=== PATIENT | female | born 1940 | race Caucasian/White ===

== ENCOUNTER → 2024-01-10 14:41 | Outpatient (REF) | payer MEDICARE, SELFPAY | LOC: HWRCS 14:41 | PROVIDERS: ATTENDING PHYSICIAN Internal Medicine Cardiovascular Disease; FAMILY PHYSICIAN Internal Medicine | DX: I34.0 Nonrheumatic mitral (valve) insufficiency (principal) | CPT/HCPCS: 93306 ==

== ENCOUNTER 2024-06-25 00:43 | Inpatient (IN) | payer MEDICARE, SELFPAY ==
[2024-06-24] VITALS (10 sets, daily range): BP systolic 94–136; BP diastolic 51–106; BMI 28.6
--- NOTE | 2024-06-24 21:58 | ED.GENMED ---
History of Present Illness
<Josh Stephen DO, Resident - Last Filed: 06/24/24 22:35>
General
Chief Complaint: Heart Rate Problem
Source: patient
Time Seen by Provider: 06/24/24 21:38
History of Present Illness
History of Present Illness:
84-year-old female with past medical history significant for paroxysmal atrial fibrillation on anticoagulation, heart failure, hyperlipidemia and lung cancer status post right upper lobe lobectomy in 2015 presents for severe cough, shortness of
breath and palpitations. She describes the cough as severe but nonproductive. Recent urgent care visit diagnosed her with a UTI, for which she is currently on antibiotics. She also endorses a singular episode of diarrhea on Monday which as well as
1 episode of vomiting with slight nausea. On presentation to the ED she is noted to be in A-fib with RVR, and diffuse wheezing is present on exam.
Past History
<Josh Stephen DO, Resident - Last Filed: 06/24/24 22:35>
Past History
ED Past Medical History: Arrthythmia, Cancer, CHF and Other (lung ca)
ED Past Surgical History: Orthopedic and Other (lung resection)
Social History
Tobacco: Non-smoker
Alcohol: Occasional
Drug: None
Personal:
Living: with family
Review of Systems
<Josh Stephen DO, Resident - Last Filed: 06/24/24 22:35>
Review of Systems
Constitutional: Reports no symptoms
Respiratory: Reports cough, trouble breathing and other (Wheezing)
Cardiac: Reports palpitations
ABD/GI: Reports nausea and vomiting
: Reports frequency
Phy Exam
<Josh Stephen DO, Resident - Last Filed: 06/24/24 22:35>
General Physical Exam
General Presentation: well appearing
General Skin: warm and dry
Cardiovascular Exam
Cardiovascular Exam: no edema and irregularly irregular
Pulmonary Exam
Pulmonary Exam: generalized wheezing
Oxygen Status: room air
Cough: coarse cough and non productive cough
Gastrointestinal Exam
Gastrointestinal Exam: non tender, soft and non distended
Musculoskeletal Exam
Musculoskeletal Exam: no edema
Sepsis
<William Poe DO - Last Filed: 06/25/24 00:45>
Sepsis Screening
Sepsis Assessment: Sepsis Ruled Out
Sepsis Screen
Sepsis Screen: Sepsis Ruled Out
Date: 06/25/24
Time: 00:45
Course
<Josh Stephen DO, Resident - Last Filed: 06/24/24 22:35>
Orders/Labs/Results
Orders:
Orders
06/24/24 21:42
Electrocardiogram (*1) Urgent
Reason for Study: Tachycardia
06/24/24 21:43
EKG- Treatment ONCE
06/24/24 22:06
Complete Blood Count/With Diff Urgent
Comprehensive Metabolic Panel Urgent
06/24/24 22:14
CR Chest - 2 Views Urgent
Comment:
Reason For Exam: cough
06/24/24 22:19
Add On- LAB Urgent
Tests Added?: NT pro-BNP
06/24/24 22:26
Diltiazem HCl [Cardizem] 10 mg IV NOW STA
Ipratropium/Albuterol Sulfate [Duoneb] 3 ml INH R NOW STA
06/24/24 22:30
Diltiazem 125 mg/125 ml Nss [Cardizem] 125 mg in 125 ml IV PER PROTOCOL
Initial dose in mg/hr, then titrate:: 5
Titrate to keep:: Heart rate 80-100 bpm
Titrate by mg/hr:: 5 mg/hr
Frequency of titrations (minutes):: 15
Maximum dose in mg/hr:: 15
06/24/24 22:44
NT-proBNP Urgent
Comment: ADD ON
Troponin I Urgent
06/24/24 23:20
Furosemide [Lasix] 60 mg IV NOW STA
06/25/24 00:26
Admit/Transfer Patient As Directed
Co-Sign Provider:
Level of Care: Inpatient admission
Assign to:: IMU- Intermediate Care
Physician / Group: [facility]
Diagnosis: A-Fib with RVR, Tracheobronchitis
Reason for Hospitalization: A-Fib with RVR, Tracheobronchitis
Expected length of stay greater than two midnights?: Yes
ELOS- Estimated Length of Stay in days: 3
I certify the patient meets the requirements for IP care: Yes
PRN Pain Medication Management As Directed
May give lesser potent ordered pain med per pt: Yes
preference::
Protocol:: Medication orders for pain may be administered in a
manner that supports deferring to patient preference
when the pt is:
- Requesting an ordered lesser potent pain medication.
Least to most potent pain medications are defined
as: acetaminophen < NSAID < tramadol < opioids
(morphine, oxycodone, hydromorphone).
- Requesting a lesser dose of the same medication IF
ORDERED.
- Requesting a less intrusive route of administration
if both routes are prescribed by the provider (PO <
IV).
06/25/24 00:28
Code Status As Directed
Resuscitation Status: Full Code
06/25/24 00:38
COVID-19 Antigen Urgent
Source: Nasal Swab
Influenza A+B Rapid Molecular Urgent
ELINOR Source: Nasal Swab
Specimen Description:
Abnormal Lab Results
06/24/24
22:06
MPV 11.5 H fL
(7.4-10.4)
Absolute Lymphs (auto) 0.8 L 10^3/uL
(1.2-3.4)
Absolute Monos (auto) 1.1 H 10^3/uL
(0.1-0.6)
Lymphocytes % 10.8 L %
(20.5-51.1)
Monocytes % 16.0 H %
(1.7-9.3)
BUN 18 H mg/dl
(7-17)
Glucose 109 H mg/dl
(70-99)
AST 66 H U/L
(14-36)
ALT 40 H U/L
(0-35)
06/24/24 22:06
06/24/24 22:06
Vital Signs
Initial and Last Documented VS:
Initial Vital Signs
Pulse Resp
144 25
06/24/24 21:41 06/24/24 21:41
Last Documented Vital Signs
Temp Pulse Resp BP Pulse Ox
98.3 F 98 15 103/55 96
06/24/24 21:43 06/25/24 00:15 06/25/24 00:15 06/25/24 00:15 06/25/24 00:15
<William Poe, DO - Last Filed: 06/25/24 00:45>
Orders/Labs/Results
Orders:
Orders
06/24/24 21:42
Electrocardiogram (*1) Urgent
Reason for Study: Tachycardia
06/24/24 21:43
EKG- Treatment ONCE
06/24/24 22:06
Complete Blood Count/With Diff Urgent
Comprehensive Metabolic Panel Urgent
06/24/24 22:14
CR Chest - 2 Views Urgent
Comment:
Reason For Exam: cough
06/24/24 22:19
Add On- LAB Urgent
Tests Added?: NT pro-BNP
06/24/24 22:26
Diltiazem HCl [Cardizem] 10 mg IV NOW STA
Ipratropium/Albuterol Sulfate [Duoneb] 3 ml INH R NOW STA
06/24/24 22:30
Diltiazem 125 mg/125 ml Nss [Cardizem] 125 mg in 125 ml IV PER PROTOCOL
Initial dose in mg/hr, then titrate:: 5
Titrate to keep:: Heart rate 80-100 bpm
Titrate by mg/hr:: 5 mg/hr
Frequency of titrations (minutes):: 15
Maximum dose in mg/hr:: 15
06/24/24 22:44
NT-proBNP Urgent
Comment: ADD ON
Troponin I Urgent
06/24/24 23:20
Furosemide [Lasix] 60 mg IV NOW STA
06/25/24 00:26
Admit/Transfer Patient As Directed
Co-Sign Provider:
Level of Care: Inpatient admission
Assign to:: IMU- Intermediate Care
Physician / Group: [facility]
Diagnosis: A-Fib with RVR, Tracheobronchitis
Reason for Hospitalization: A-Fib with RVR, Tracheobronchitis
Expected length of stay greater than two midnights?: Yes
ELOS- Estimated Length of Stay in days: 3
I certify the patient meets the requirements for IP care: Yes
PRN Pain Medication Management As Directed
May give lesser potent ordered pain med per pt: Yes
preference::
Protocol:: Medication orders for pain may be administered in a
manner that supports deferring to patient preference
when the pt is:
- Requesting an ordered lesser potent pain medication.
Least to most potent pain medications are defined
as: acetaminophen < NSAID < tramadol < opioids
(morphine, oxycodone, hydromorphone).
- Requesting a lesser dose of the same medication IF
ORDERED.
- Requesting a less intrusive route of administration
if both routes are prescribed by the provider (PO <
IV).
06/25/24 00:28
Code Status As Directed
Resuscitation Status: Full Code
06/25/24 00:38
COVID-19 Antigen Urgent
Source: Nasal Swab
Influenza A+B Rapid Molecular Urgent
ELINOR Source: Nasal Swab
Specimen Description:
Abnormal Lab Results
06/24/24
22:06
MPV 11.5 H fL
(7.4-10.4)
Absolute Lymphs (auto) 0.8 L 10^3/uL
(1.2-3.4)
Absolute Monos (auto) 1.1 H 10^3/uL
(0.1-0.6)
Lymphocytes % 10.8 L %
(20.5-51.1)
Monocytes % 16.0 H %
(1.7-9.3)
BUN 18 H mg/dl
(7-17)
Glucose 109 H mg/dl
(70-99)
AST 66 H U/L
(14-36)
ALT 40 H U/L
(0-35)
06/24/24 22:06
06/24/24 22:06
Vital Signs
Initial and Last Documented VS:
Initial Vital Signs
Pulse Resp
144 25
06/24/24 21:41 06/24/24 21:41
Last Documented Vital Signs
Temp Pulse Resp BP Pulse Ox
98.3 F 98 15 103/55 96
06/24/24 21:43 06/25/24 00:15 06/25/24 00:15 06/25/24 00:15 06/25/24 00:15
<Josh Stephen DO, Resident - Last Filed: 06/24/24 22:35>
MDM/Problems Addressed
Differential Diagnosis Includes:
Acute hypoxemic respiratory insufficiency versus heart failure exacerbation versus atrial fibrillation with RVR versus bronchitis
MDM/Problems Addressed:
#Acute hypoxemic respiratory insufficiency versus heart failure exacerbation versus atrial fibrillation with RVR
Patient has a past medical history of heart failure and atrial fibrillation, currently on anticoagulation
Reports cough, palpitations and severe shortness of breath
Diffuse wheezing present bilaterally
Patient currently in atrial fibrillation with RVR, on anticoagulation
Currently satting in the 90s on room air
Will initiate supplemental oxygen as needed, titrate as tolerated
DuoNeb nebulizer treatments for wheezing
Rate control with IV calcium channel blockers
Supplemental oxygen as needed
Will check COVID, flu, RSV to rule out bronchitis
Symptoms could be explained by heart failure, will consider IV diuresis
<William Poe DO - Last Filed: 06/25/24 00:45>
*Radiology
Radiology exam reviewed: preliminary read by ED provider
*Pulse Oximetry
Patient hypoxic: yes
*EKG
Interpreted by ED Provider?: Yes
Interpretation: abnormal
Comparison EKG: changes noted
Heart Rate: 142
Rate: tachycardiac
Rhythm: a-fib
Ischemia: non-specific ST changes
*Relief Operator Interpretation
Rate: tachycardiac
Interpretation: abnormal
Heart Rate: 140
Rhythm: a-fib
*Critical Care Note
Total Time (30-74mins, 75-104mins- exclusive of procedures): 32
<William Peo DO - Last Filed: 06/25/24 00:45>
Update Note
Update Note:
Update labs are noted chest x-ray noted proBNP noted patient is hypoxic will start supplemental oxygen order diuretic rate control will require admission
ED Attending Note
<Josh Stephen DO, Resident - Last Filed: 06/24/24 22:35>
-
Portions of this chart may have been created with voice recognition software.� Occasional wrong word or��sound alike� substitutions may have occurred due to the inherent limitations of voice recognition software.
<William Poe, DO - Last Filed: 06/25/24 00:45>
ED Attending Note
Patient seen and examined by attending physician: Yes
I performed a history and physical exam of patient and discussed management with resident, I reviewed resident's note and agree with documented findings and plan of care.: Yes
ED Attending Note:
Seen with resident examined independently 84-year-old female PAF, on Eliquis diuretic as well recent URI cough, wheezing, no leg edema, seen at an urgent care had a chest x-ray which was unremarkable started on antibiotic for UTI, here she is
tachypneic tachycardic wheezing, does not examine to be particularly volume overloaded, hypoxic, plan will be supplemental oxygen nebs as tolerated, rate control, viral swabs chest x-ray proBNP
Discharge Plan
Departure
Patient Disposition: Admit
Date of Disposition: 06/24/24
Time of Disposition: 23:22
Presentation/result/management discussed w/ accepting MD/DO: Hospitalist
Patient with high blood pressure during this ER visit?: No
Condition: Fair
Covid-19: Not Applicable
Discharge Problem:
Afib, Hypoxic, CHF (congestive heart failure)
Interventions
Interventions:
*Risk Screen - Suicide Last Done: 06/24/24 21:51
*General Assessment Last Done: 06/24/24 21:51
*Neglect/Abuse Screening Last Done: 06/24/24 21:51
ED- Fall Risk Assessment Last Done: 06/24/24 21:51
*ED COVID-19 Vaccine History Last Done: 06/24/24 21:51
ED- Cardiac Assessment Last Done: 06/24/24 21:51
ED- Pulmonary Assessment Last Done: 06/24/24 21:51
[2024-06-24] MEDS: DUONEB 3 ML INH (22:31)
[2024-06-24 22:33] LABS: % Basophils 0.3 % (0-2); % Eosinophils 0.1 % (0-6); % Immature Granulocytes 0.3 % (0-0.5); % Lymphocytes 10.8 % (20.5-51.1); % Neutrophils 72.5 % (42.2-75.2); ALT (SGPT) 40 U/L (0-35); AST (SGOT) 66 U/L (14-36); Absolute Lymphocytes 0.8 10^3/uL (1.2-3.4); Absolute Monocytes 1.1 10^3/uL (0.1-0.6); Absolute Neutrophils 5.2 10^3/uL (1.4-6.5); Albumin 4.2 g/dl (3.5-5.0); Alkaline Phosphatase 73 U/L (38-126); Blood Urea Nitrogen 18 mg/dl (7-17); Calcium 8.6 mg/dl (8.4-10.2); Carbon Dioxide 26 mmol/L (22-30); Chloride 102 mmol/L (98-107); Glucose 109 mg/dl (70-99); Hematocrit 42.8 % (37.0-47.0); Hemoglobin 14.2 g/dL (12.0-16.0); Mean Corp Hgb Conc. 33.2 g/dL (33.0-37.0); Mean Corpuscular Hgb 30.7 pg (27.0-31.0); Mean Corpuscular Volume 92.6 fL (81.0-99.0); Mean Platelet Volume 11.5 fL (7.4-10.4); Nucleated Red Blood Cells % 0 %; Platelet Count 144 10^3/uL (130-400); Potassium 3.5 mmol/L (3.5-5.1); Red Blood Cell Count 4.62 10^6/uL (4.20-5.40); Red Cell Dist. Width 13.2 % (11.5-14.5); Sodium 138 mmol/L (135-145); Total Bilirubin 0.7 mg/dl (0.2-1.3); Total Protein 6.8 g/dl (6.3-8.2); White Blood Cell Count 7.1 10^3/uL (4.8-10.8); eGFR > 60.00
[2024-06-24] MEDS: CARDIZEM 10 MG IV (22:34)
[2024-06-24] MEDS: CARDIZEM 125 IV (22:35)
[2024-06-24 23:19] LABS: NT-proBNP 5020 pg/ml; Troponin I < 0.012 ng/ml
[2024-06-24] MEDS: LASIX 60 MG IV (23:59)
[2024-06-25] VITALS (17 sets, daily range): BP systolic 94–132; BP diastolic 55–94; BMI 27.1
--- NOTE | 2024-06-25 00:32 | HPS.HSE ---
Family Physician
-
Family Physician: Anthony Palencia
Chief Complaint
-
Cough / SOB
History of Present Illness
Patient is an 84y F with PMH significant for A-Fib, HFpEF and lung cancer s/p excision who presents to ED complaining of cough and SOB. Patient states that she has had a 'deep seated' cough for the past week or two. Patient notes that cough is
not productive. She has sense of palpitations / fluttering in her chest - but only with coughing spells. She has become progressively more SOB. No chest pain. No fevers but she does report chills. No known sick contacts.
Patient notes that she has also had GI symptoms over the past 3-4 days including nausea and few loose stools.
She was seen at Urgent Care on Monday with complaints of urinary frequency and dysuria. She was placed on Macrobid at that time.
She was also started on cough syrup which she states has been modestly effective.
Medical History
Past Medical History
Past Medical History: Reports Other
Additional Past Medical History:
Persistent Atrial Fibrillation
Chronic HFpEF
Lung Cancer s/p Resection. No Adjuvant Therapies
Recurrent UTIs
Past Surgical History: Reports Other
Additional Past Surgical History:
Right Upper Lobectomy
Skin Cancer Excisions
Right SHAW
Social History
Tobacco: Non-smoker
Alcohol: None
Drug: None
Family History
Family History: Not pertinent
Allergies / Home Medications
Allergies reflects when Allergies were last updated in [facility].
Home Medications with original date entered in [facility]
Allergy/Medication List:
Allergies
Allergy/AdvReac Type Severity Reaction Status Date / Time
Sulfa (Sulfonamide Allergy Mild Rash Verified 06/24/24 21:50
Antibiotics)
Home Medications
apixaban 5 mg tablet (Eliquis) 5 mg PO BID #60 tabs 07/13/20
diltiazem HCl 240 mg capsule,extended release 24 hr 240 mg PO DAILY 06/24/24
furosemide 40 mg tablet 40 mg PO Q48H 06/24/24
guaifenesin 600 mg tablet, extended release 12 hr (Mucinex) 600 mg PO [id number] PRN cough 06/24/24
metoprolol succinate 50 mg tablet,extended release 24 hr (Toprol XL) 75 mg PO BID 06/24/24
nitrofurantoin monohydrate/macrocrystals 100 mg capsule (Macrobid) 100 mg PO BID 06/24/24
rosuvastatin 10 mg tablet 10 mg PO Q48H 06/24/24
Review of Systems
-
History Source: Patient
A 12 point ROS was completed and negative except as noted: Yes
Constitutional: Reports Fatigue and Chills; Denies Fever
EENT: Denies Sore Throat
Respiratory: Reports Cough and Trouble Breathing
Cardiac: Reports Palpitations; Denies Chest Pain, Diaphoresis or Syncope
Abdomen/GI: Reports Nausea and Diarrhea; Denies Abdominal Pain, Vomiting or Bloody Stools
: Reports Dysuria and Frequency; Denies Incontinence
Musculoskeletal: Denies Joint Pain or Edema
Neurological: Denies Dizzy or Headache
Psych: Denies Depression or Anxiety
Physical Exam
Vital Signs
Vital Signs
Temp Pulse Resp BP Pulse Ox
98.3 F 98 15 103/55 96
06/24/24 21:43 06/25/24 00:15 06/25/24 00:15 06/25/24 00:15 06/25/24 00:15
Physical Exam
General: Other (84y F in no acute distress.)
HEENT: Moist mucous membranes and PERRLA
Respiratory: Other (Coarse rhonchi throughout all lung pagan. Mild expiratory wheezes. No rales.)
Cardiac: S1/S2, Irregular Rhythm and Murmur (II/ HEENA)
GI: Soft, Non Tender, Non Distended and Normal Bowel Sounds
Musculoskeletal: No Clubbing, No Cyanosis and No Edema
Neuro: AO x 3
Laboratory Results
-
06/24/24 22:06
06/24/24 22:06
Laboratory Results
APTT Cancelled 06/24/24 21:42
Total Bilirubin 0.7 mg/dl (0.2-1.3) 06/24/24 22:06
AST 66 U/L (14-36) H 06/24/24 22:06
ALT 40 U/L (0-35) H 06/24/24 22:06
Alkaline Phosphatase 73 U/L (38-126) 06/24/24 22:06
Troponin I < 0.012 ng/ml 06/24/24 22:44
Impression/Plan
-
A/P: Patient is an 84y F with PMH significant for A-Fib, CHF and lung cancer who presents to ED complaining of cough and SOB.
Tracheobronchitis
- Admit for further evaluation and treatment.
- Patient presents with chills, cough, GI symptoms and worsening dyspnea.
- Rhonchi on exam more consistent with infectious process > pulmonary edema.
- Abx with ceftriaxone / doxycycline for now.
- Supportive care including nebs, cough suppressants, mucolytics, etc.
- Follow for clinical improvement.
- Check COVID and influenza.
Persistent Atrial Fibrillation with Rapid Ventricular response
- Elevated heart rate on admission - improved on IV diltiazem.
- Continue and titrate as needed for rate control.
- Continue metoprolol.
- Continue Eliquis for stroke risk reduction.
- Monitor on tele overnight.
- Cardiology evaluation for additional recommendations.
Chronic HFpEF
- Patient does not appear volume overloaded on exam.
- Continue Lasix - increase to daily dosing instead of q48h.
- Follow I/Os, daily weights, etc.
- Echo done in January with EF = 50-55% and mild - mod MR and TR.
UTI
- Patient recently diagnosed with UTI at Urgent Care.
- Hold Macrobid while on other abx as noted above.
History of Lung Cancer
- s/p resection 11 years ago. No adjuvant therapy.
- Had 'full body scan' last year that showed no evidence of disease.
DVT Prophylaxis: On Eliquis
Code Status: Full
[2024-06-25] MEDS: ROCEPHIN 1000 MG IV (01:45)
[2024-06-25] MEDS: CRESTOR 10 MG PO (01:45)
[2024-06-25] MEDS: STERILE WATER FOR INJECTION 10 ML IV (01:45)
[2024-06-25 02:01] LABS: COVID-19 Antigen Negative (Negative)
[2024-06-25 02:08] LABS: Troponin I < 0.012 ng/ml
[2024-06-25 06:05] LABS: Hematocrit 43.6 % (37.0-47.0); Hemoglobin 14.4 g/dL (12.0-16.0); Mean Corpuscular Hgb 30.5 pg (27.0-31.0); Mean Corpuscular Volume 92.4 fL (81.0-99.0); Platelet Count 143 10^3/uL (130-400); Red Blood Cell Count 4.72 10^6/uL (4.20-5.40); White Blood Cell Count 5.8 10^3/uL (4.8-10.8)
[2024-06-25] MEDS: MUCINEX 600 MG PO ×2 (08:54→20:28)
[2024-06-25] MEDS: ELIQUIS 5 MG PO ×2 (08:54→20:28)
[2024-06-25] MEDS: LASIX 40 MG PO (08:55)
[2024-06-25] MEDS: TESSALON PERLES 100 MG PO (08:57)
[2024-06-25] MEDS: TOPROL XL 75 MG PO ×2 (08:57→20:28)
[2024-06-25] MEDS: ANESTHETIC LOZENGE 1 LOZENGE PO ×2 (08:57→17:51)
[2024-06-25] MEDS: VIBRAMYCIN 100 MG PO (08:57)
[2024-06-25 09:44] LABS: Blood Urea Nitrogen 19 mg/dl (7-17); Calcium 8.6 mg/dl (8.4-10.2); Carbon Dioxide 27 mmol/L (22-30); Chloride 102 mmol/L (98-107); Estimated Creatinine Clearance 55 ml/min; Glucose 96 mg/dl (70-99); HDL Cholesterol 43 mg/dl; LDL Cholesterol, Calculated 81 mg/dl; Sodium 141 mmol/L (135-145); Total Cholesterol 144 mg/dl (50-199); Triglyceride 102 mg/dl (10-149); Very Low Density Lipoprotein 20 mg/dl (0-30); eGFR > 60.00
--- NOTE | 2024-06-25 09:49 | W.PN.HOSP.TC ---
Today's Communication/Plan
-
Tamiflu
Standing nebs (Levalbuterol)
Wean Dilt as able
F/U Procal and DC antibiotics if negative
Assessment / Plan
Assessment / Plan
Ms. Jazmyn Ca is a 84 yo woman with hx afib, HFpEF, lunc CA s/p excision presents to the ER with cough and SOB.
CXR
IMPRESSION:
Cardiomegaly with likely bibasilar atelectasis.
Tracheobronchitis
Influenza A
- Patient presents with chills, cough, GI symptoms and worsening dyspnea.
- Rhonchi on exam more consistent with infectious process > pulmonary edema.
- Influenza A positive, start Tamiflu
- Supportive care including nebs, cough suppressants, mucolytics
- check procalcitonin and if negative can stop antibiotics
Persistent Atrial Fibrillation with Rapid Ventricular response
- Elevated heart rate on admission - improved on IV diltiazem - wean down as able
- Continue and titrate as needed for rate control.
- Continue metoprolol.
- Continue Eliquis for stroke risk reduction.
- Monitor on tele overnight.
Hypokalemia
-replete and check Mag
Chronic HFpEF
- Patient does not appear volume overloaded on exam.
- Continue Lasix - increase to daily dosing instead of q48h.
- Follow I/Os, daily weights, etc.
- Echo done in January with EF = 50-55% and mild - mod MR and TR.
UTI
- Patient recently diagnosed with UTI at Urgent Care.
- Hold Macrobid while on other abx --> resume if stop abx
History of Lung Cancer
- s/p resection 11 years ago. No adjuvant therapy.
- Had 'full body scan' last year that showed no evidence of disease.
DVT Prophylaxis: On Eliquis
Code Status: Full
51 minutes spent on patient care
Anticipated Discharge: 24 - 48 hours
Subjective/Interval History
-
Date of Service: June 25, 2024
feeling slightly better this morning
has some GI upset
Objective Data
-
Labs:
Laboratory Results
06/24/24 06/24/24 06/25/24
21:42 22:06 05:24
WBC 7.1 5.8
Hgb 14.2 14.4
Hct 42.8 43.6
Plt Count 144 143
APTT Cancelled
Sodium 138 Cancelled
Potassium 3.5 Cancelled
Chloride 102 Cancelled
Carbon Dioxide 26 Cancelled
BUN 18 H Cancelled
Creatinine 0.7 Cancelled
Glucose 109 H Cancelled
Calcium 8.6 Cancelled
Total Bilirubin 0.7
AST 66 H
ALT 40 H
Alkaline Phosphatase 73
06/25/24
09:15
WBC
Hgb
Hct
Plt Count
APTT
Sodium 141
Potassium 3.0 L
Chloride 102
Carbon Dioxide 27
BUN 19 H
Creatinine 0.7
Glucose 96
Calcium 8.6
Total Bilirubin
AST
ALT
Alkaline Phosphatase
Vital Signs:
Vital Signs
Temp Pulse Resp BP Pulse Ox
99.0 F 88 18 98/60 95
06/25/24 08:01 06/25/24 08:57 06/25/24 08:01 06/25/24 08:57 06/25/24 08:01
I&O
06/24/24 06/25/24 06/26/24
06:59 06:59 06:59
Intake Total 50 / 50
Output Total 1999 / 1999
Balance -1950 / -1950
Review of Systems
-
History Source: Patient
All other systems: Reviewed and negative
Physical Exam
-
General: No Apparent Distress and Conversant
HEENT: PERRLA
Respiratory: Wheezes and Rhonchi
Cardiac: Irregular Rhythm
GI: Soft and Nontender
Musculoskeletal: No Edema
Skin: Warm and Dry; Negative Rash
Neuro: AO x 3
Psych: Calm
Data Reviewed
-
Diagnostic Radiology: Report Reviewed by me
Labs: Labs Reviewed by me
[2024-06-25 09:56] LABS: Troponin I < 0.012 ng/ml
[2024-06-25 10:29] LABS: Procalcitonin 0.16 ng/ml (0.0-0.25)
[2024-06-25] MEDS: XOPENEX 0.63 MG INHALANT SOLUTION INH ×3 (10:36→19:51)
[2024-06-25] MEDS: KCL 260 MEQ IV (11:00)
[2024-06-25] MEDS: KCL ELIXIR 40 MEQ PO (11:00)
[2024-06-25] MEDS: TAMIFLU 30 MG PO ×2 (11:01→20:28)
[2024-06-25] MEDS: ATROVENT NEBULES 0.5 MG INH ×2 (14:50→19:51)
[2024-06-25 16:04] LABS: Potassium 3.7 mmol/L (3.5-5.1)
[2024-06-25] MEDS: KCL 20 MEQ PO (17:26)
[2024-06-25] MEDS: CARDIZEM CD 240 MG PO (17:26)
[2024-06-25] MEDS: MACROBID 100 MG PO (20:28)
[2024-06-26 03:38] VITALS: BP 102/68
[2024-06-26 06:00] VITALS: BMI 26.9
[2024-06-26 07:10] VITALS: BP 120/71
[2024-06-26] MEDS: ATROVENT NEBULES 0.5 MG INH ×3 (07:32→19:51)
[2024-06-26] MEDS: XOPENEX 0.63 MG INHALANT SOLUTION INH ×3 (07:32→19:51)
[2024-06-26 08:13] LABS: Hematocrit 42.6 % (37.0-47.0); Hemoglobin 14.1 g/dL (12.0-16.0); Mean Corp Hgb Conc. 33.1 g/dL (33.0-37.0); Mean Corpuscular Hgb 30.8 pg (27.0-31.0); Platelet Count 153 10^3/uL (130-400); Red Blood Cell Count 4.58 10^6/uL (4.20-5.40); Red Cell Dist. Width 13.1 % (11.5-14.5); White Blood Cell Count 5.4 10^3/uL (4.8-10.8)
[2024-06-26] MEDS: MACROBID 100 MG PO ×2 (08:17→20:18)
[2024-06-26] MEDS: TAMIFLU 30 MG PO ×2 (08:17→20:17)
[2024-06-26] MEDS: TOPROL XL 75 MG PO ×2 (08:17→20:18)
[2024-06-26] MEDS: MUCINEX 600 MG PO ×2 (08:18→20:18)
[2024-06-26] MEDS: CARDIZEM CD 240 MG PO (08:18)
[2024-06-26] MEDS: LASIX 40 MG PO (08:18)
[2024-06-26] MEDS: ELIQUIS 5 MG PO ×2 (08:19→20:17)
[2024-06-26 08:45] LABS: Blood Urea Nitrogen 18 mg/dl (7-17); Calcium 8.7 mg/dl (8.4-10.2); Carbon Dioxide 31 mmol/L (22-30); Chloride 101 mmol/L (98-107); Estimated Creatinine Clearance 54 ml/min; Glucose 80 mg/dl (70-99); Potassium 3.4 mmol/L (3.5-5.1); Sodium 139 mmol/L (135-145); eGFR > 60.00
[2024-06-26] MEDS: ANESTHETIC LOZENGE 1 LOZENGE PO (09:49)
[2024-06-26 11:05] VITALS: BP 110/62
--- NOTE | 2024-06-26 12:12 | W.PN.HOSP.TC ---
Today's Communication/Plan
-
Assessment / Plan
Assessment / Plan
Acute hypoxic respiratory failure, on 4l, lowest documented spo2 88%
-secondary to flu and ?HF
-increased diuretic to po 40mg
-started on tamiflu
-wean o2 as tolerated
Tracheobronchitis
Influenza A
- Continue 5day course of tamiflu
- Supportive care including nebs, cough suppressants, mucolytics
Persistent Atrial Fibrillation with Rapid Ventricular response
- Controlled fib
- Off dilt drip
- On po home dose dilt and eliquis
HypoK
- repelte prn
Hypokalemia
-replete and check Mag
Acute on Chronic HFpEF
-BNP 5200, cxr with cardiomeg
- Does not appear volume overloaded on exam.
- Continue Lasix - increase to daily dosing instead of q48h.
- Follow I/Os, daily weights, etc.
- Echo done in January with EF = 50-55% and mild - mod MR and TR.
UTI
- Patient recently diagnosed with UTI at Urgent Care.
- Hold Macrobid while on other abx --> resume if stop abx
History of Lung Cancer
- s/p resection 11 years ago. No adjuvant therapy.
- Had 'full body scan' last year that showed no evidence of disease.
DVT Prophylaxis: On Eliquis
Code Status: Full
Anticipated Discharge: > 48 hours
Subjective/Interval History
-
Date of Service: June 26, 2024
seen and examined
no new comaplitns
asking intellectual questions about afib
no aucte overngiht events
remains on o2 at 4l
Objective Data
-
Labs:
Laboratory Results
06/26/24
07:04
WBC 5.4
Hgb 14.1
Hct 42.6
Plt Count 153
Sodium 139
Potassium 3.4 L
Chloride 101
Carbon Dioxide 31 H
BUN 18 H
Creatinine 0.7
Glucose 80
Calcium 8.7
Vital Signs:
Vital Signs
Temp Pulse Resp BP Pulse Ox
97.9 F 79 17 110/62 98
06/26/24 11:05 06/26/24 11:05 06/26/24 11:05 06/26/24 11:05 06/26/24 11:05
I&O
06/25/24 06/26/24 06/27/24
06:59 06:59 06:59
Intake Total 50 / 50 670 / 670
Output Total 1999 / 1999 250 / 250
Balance -1950 / -1950 420 / 420
Physical Exam
-
General: No Apparent Distress and Comfortable
HEENT: Normocephalic and Atraumatic
Respiratory: Rhonchi
Cardiac: S1/S2 and Irregular Rhythm
GI: Soft, Nontender, Nondistended and Normal Bowel Sounds
Musculoskeletal: No Clubbing, No Cyanosis and No Edema
Skin: Warm and Dry
Neuro: Awake, Alert, Oriented and AO x 3
Psych: Calm
[2024-06-26] MEDS: KCL 40 MEQ PO (12:49)
--- NOTE | 2024-06-26 15:11 | CM ---
Patient seen at bedside.
On , started on Tamiflu
CM to continue to follow progression during hospitalization
PLAN: home, to be determined on patient progress
[2024-06-26 15:17] VITALS: BP 118/65
[2024-06-26 19:29] VITALS: BP 120/64
[2024-06-26 23:13] VITALS: BP 102/56
[2024-06-27] VITALS (7 sets, daily range): BP systolic 102–136; BP diastolic 54–75
[2024-06-27] MEDS: ATROVENT NEBULES 0.5 MG INH ×3 (07:39→19:48)
[2024-06-27] MEDS: XOPENEX 0.63 MG INHALANT SOLUTION INH ×3 (07:39→19:48)
[2024-06-27] MEDS: TAMIFLU 30 MG PO ×2 (09:57→20:13)
[2024-06-27] MEDS: CARDIZEM CD 240 MG PO (09:57)
[2024-06-27] MEDS: CRESTOR 10 MG PO (09:57)
[2024-06-27] MEDS: ELIQUIS 5 MG PO ×2 (09:57→20:13)
[2024-06-27] MEDS: TOPROL XL 75 MG PO ×2 (09:57→20:14)
[2024-06-27] MEDS: MUCINEX 600 MG PO ×2 (09:58→20:13)
[2024-06-27] MEDS: LASIX 40 MG PO (09:58)
[2024-06-27] MEDS: MACROBID 100 MG PO ×2 (09:58→20:14)
[2024-06-27] MEDS: KCL 40 MEQ PO ×2 (09:59→13:01)
--- NOTE | 2024-06-27 13:58 | W.PN.HOSP.TC ---
Today's Communication/Plan
-
Assessment / Plan
Assessment / Plan
Acute hypoxic respiratory failure, now on 2l o2, lowest documented spo2 88%
-secondary to flu and ?HF
-increased diuretic to po 40mg
-started on tamiflu
-wean o2 as tolerated
Tracheobronchitis
Influenza A
- Continue 5day course of tamiflu
- Supportive care including nebs, cough suppressants, mucolytics
Persistent Atrial Fibrillation with Rapid Ventricular response
- Controlled fib
- Off dilt drip
- On po home dose dilt and eliquis
HypoK
- repelte prn
Hypokalemia
-replete and check Mag
Acute on Chronic HFpEF
-BNP 5200, cxr with cardiomeg
- Does not appear volume overloaded on exam.
- Continue Lasix - increase to daily dosing instead of q48h.
- Follow I/Os, daily weights, etc.
- Echo done in January with EF = 50-55% and mild - mod MR and TR.
UTI
- Patient recently diagnosed with UTI at Urgent Care.
- Hold Macrobid while on other abx --> resume if stop abx
History of Lung Cancer
- s/p resection 11 years ago. No adjuvant therapy.
- Had 'full body scan' last year that showed no evidence of disease.
DVT Prophylaxis: On Eliquis
Code Status: Full
Anticipated Discharge: > 48 hours
Subjective/Interval History
-
Date of Service: June 27, 2024
seen and examined
no new complaints
no acute overnight events
on 2l
feeling a little better
Objective Data
-
Vital Signs:
Vital Signs
Temp Pulse Resp BP Pulse Ox
99.2 F 87 18 136/75 95
06/27/24 11:20 06/27/24 11:20 06/27/24 11:20 06/27/24 11:20 06/27/24 11:20
I&O
06/26/24 06/27/24 06/28/24
06:59 06:59 06:59
Intake Total 670 / 670 780 / 780
Output Total 250 / 250
Balance 420 / 420 780 / 780
Physical Exam
-
General: No Apparent Distress
HEENT: Normocephalic and Atraumatic
Respiratory: Rales
Cardiac: S1/S2 and Irregular Rhythm
GI: Soft and Nontender
Skin: Warm and Dry
Neuro: Awake, Alert, Oriented and AO x 3
Psych: Calm
--- NOTE | 2024-06-27 15:29 | CM ---
Patient seen at bedside.
cont on
diuretic was increased
tamiflu
discussed hh, declines
PLAN: home, no needs anticipated.
[2024-06-28 03:00] VITALS: BP 112/60
[2024-06-28 06:00] VITALS: BMI 26.6
[2024-06-28] MEDS: XOPENEX 0.63 MG INHALANT SOLUTION INH ×3 (08:34→21:22)
[2024-06-28] MEDS: ATROVENT NEBULES 0.5 MG INH ×3 (08:34→21:22)
[2024-06-28 08:53] VITALS: BMI 26.6
[2024-06-28 09:11] LABS: Hematocrit 45.5 % (37.0-47.0); Mean Corpuscular Hgb 30.2 pg (27.0-31.0); Mean Corpuscular Volume 91.7 fL (81.0-99.0); Platelet Count 170 10^3/uL (130-400); Red Blood Cell Count 4.96 10^6/uL (4.20-5.40); Red Cell Dist. Width 12.9 % (11.5-14.5)
[2024-06-28 09:14] VITALS: BP 139/85
[2024-06-28] MEDS: ELIQUIS 5 MG PO ×2 (09:15→20:32)
[2024-06-28] MEDS: MUCINEX 600 MG PO ×2 (09:15→20:34)
[2024-06-28] MEDS: LASIX 40 MG PO (09:16)
[2024-06-28] MEDS: MACROBID 100 MG PO ×2 (09:16→20:34)
[2024-06-28] MEDS: CARDIZEM CD 240 MG PO (09:16)
[2024-06-28 09:26] LABS: Blood Urea Nitrogen 18 mg/dl (7-17); Carbon Dioxide 30 mmol/L (22-30); Chloride 100 mmol/L (98-107); Estimated Creatinine Clearance 47 ml/min; Glucose 86 mg/dl (70-99); Potassium 4.5 mmol/L (3.5-5.1); Sodium 139 mmol/L (135-145); eGFR > 60.00
[2024-06-28] MEDS: TAMIFLU 30 MG PO ×2 (09:31→20:32)
[2024-06-28] MEDS: TOPROL XL 75 MG PO ×2 (09:31→20:32)
[2024-06-28 11:00] VITALS: BP 120/67
--- NOTE | 2024-06-28 12:49 | CM ---
Patient seen at bedside.
IMM explained & signed.
Per nursing POX 93% RA
PLAN: home, no needs anticipated
--- NOTE | 2024-06-28 12:54 | W.PN.HOSP.TC ---
Today's Communication/Plan
-
Assessment / Plan
Assessment / Plan
Acute hypoxic respiratory failure, now on 2l o2, lowest documented spo2 88%
-secondary to flu and ?HF
-increased diuretic to po 40mg
-started on tamiflu
-wean o2 as tolerated
Tracheobronchitis
Influenza A
- Continue 5day course of tamiflu
- Supportive care including nebs, cough suppressants, mucolytics
Persistent Atrial Fibrillation with Rapid Ventricular response
- Controlled fib
- Off dilt drip
- On po home dose dilt and eliquis
HypoK
- repelte prn
Hypokalemia
-replete and check Mag
Acute on Chronic HFpEF
-BNP 5200, cxr with cardiomeg
- Does not appear volume overloaded on exam.
- Continue Lasix - increase to daily dosing instead of q48h.
- Follow I/Os, daily weights, etc.
- Echo done in January with EF = 50-55% and mild - mod MR and TR.
UTI
- Patient recently diagnosed with UTI at Urgent Care.
- Hold Macrobid while on other abx --> resume if stop abx
History of Lung Cancer
- s/p resection 11 years ago. No adjuvant therapy.
- Had 'full body scan' last year that showed no evidence of disease.
DVT Prophylaxis: On Eliquis
Code Status: Full
Anticipated Discharge: 24 - 48 hours
Subjective/Interval History
-
Date of Service: June 28, 2024
Seen and examined. No new complaints. No acute overnight events.
Feeling much better however still feels congested
Objective Data
-
Labs:
Laboratory Results
06/28/24
06:35
WBC 8.0
Hgb 15.0
Hct 45.5
Plt Count 170
Sodium 139
Potassium 4.5 D
Chloride 100
Carbon Dioxide 30
BUN 18 H
Creatinine 0.8
Glucose 86
Calcium 9.0
Vital Signs:
Vital Signs
Temp Pulse Resp BP Pulse Ox
98.2 F 93 16 120/67 96
06/28/24 11:00 06/28/24 11:00 06/28/24 11:00 06/28/24 11:00 06/28/24 11:00
I&O
06/27/24 06/28/24 06/29/24
06:59 06:59 06:59
Intake Total 780 / 780 480 / 480
Balance 780 / 780 480 / 480
Physical Exam
-
General: Well Developed and Well Nourished
HEENT: Normocephalic and Atraumatic
Respiratory: Decreased Breath Sounds
Cardiac: S1/S2 and Irregular Rhythm
GI: Soft, Nontender, Nondistended and Normal Bowel Sounds
Musculoskeletal: No Clubbing, No Cyanosis and No Edema
Skin: Warm
Neuro: Awake, Alert, Oriented and AO x 3
Psych: Calm
[2024-06-28 14:52] VITALS: BP 112/67
[2024-06-28 19:11] VITALS: BP 129/83
[2024-06-28 23:30] VITALS: BP 128/76
[2024-06-29 03:14] VITALS: BP 114/63
[2024-06-29 06:00] VITALS: BMI 26.6
[2024-06-29 07:00] VITALS: BP 119/68
[2024-06-29 07:18] LABS: Blood Urea Nitrogen 24 mg/dl (7-17); Calcium 9.1 mg/dl (8.4-10.2); Carbon Dioxide 34 mmol/L (22-30); Chloride 99 mmol/L (98-107); Estimated Creatinine Clearance 42 ml/min; Glucose 97 mg/dl (70-99); Sodium 140 mmol/L (135-145); eGFR > 60.00
[2024-06-29 07:23] LABS: Hematocrit 45.9 % (37.0-47.0); Hemoglobin 15.4 g/dL (12.0-16.0); Mean Corp Hgb Conc. 33.6 g/dL (33.0-37.0); Mean Corpuscular Hgb 30.3 pg (27.0-31.0); Mean Corpuscular Volume 90.4 fL (81.0-99.0); Mean Platelet Volume 11.7 fL (7.4-10.4); Platelet Count 183 10^3/uL (130-400); Red Blood Cell Count 5.08 10^6/uL (4.20-5.40); Red Cell Dist. Width 12.8 % (11.5-14.5); White Blood Cell Count 8.1 10^3/uL (4.8-10.8)
[2024-06-29] MEDS: ATROVENT NEBULES 0.5 MG INH (07:57)
[2024-06-29] MEDS: XOPENEX 0.63 MG INHALANT SOLUTION INH (07:57)
[2024-06-29] MEDS: MUCINEX 600 MG PO (08:59)
[2024-06-29] MEDS: CARDIZEM CD 240 MG PO (08:59)
[2024-06-29] MEDS: CRESTOR 10 MG PO (08:59)
[2024-06-29] MEDS: TOPROL XL 75 MG PO (09:00)
[2024-06-29] MEDS: MACROBID 100 MG PO (09:01)
[2024-06-29] MEDS: TAMIFLU 30 MG PO (09:01)
[2024-06-29] MEDS: LASIX 40 MG PO (09:01)
[2024-06-29] MEDS: ELIQUIS 5 MG PO (09:01)
[2024-06-29 11:00] VITALS: BP 117/72
--- NOTE | 2024-06-29 12:21 | W.PN.HOSP.TC ---
Today's Communication/Plan
-
dc home
More than 30 minutes spent in discharge including
Final examination of the patient
Summarizing hospital stay
Instructions for continuing care to all relevant caregivers
Preparation of discharge records, prescriptions, and referral forms
Total time spent (in minutes): 33mins
Assessment / Plan
Assessment / Plan
Acute hypoxic respiratory failure, now on 2l o2, lowest documented spo2 88%
-secondary to flu
-increased diuretic to po 40mg
-started on tamiflu
-wean o2 as tolerated
Tracheobronchitis
Influenza A
- Continue 5day course of tamiflu
- Supportive care including nebs, cough suppressants, mucolytics
Persistent Atrial Fibrillation with Rapid Ventricular response
- Controlled fib
- Off dilt drip
- On po home dose dilt and eliquis
HypoK
- repelte prn
Hypokalemia
-replete and check Mag
Acute on Chronic HFpEF
-BNP 5200, cxr with cardiomeg
- Does not appear volume overloaded on exam.
- Continue Lasix - increase to daily dosing instead of q48h.
- Follow I/Os, daily weights, etc.
- Echo done in January with EF = 50-55% and mild - mod MR and TR.
UTI
- Patient recently diagnosed with UTI at Urgent Care.
- Hold Macrobid while on other abx --> resume if stop abx
History of Lung Cancer
- s/p resection 11 years ago. No adjuvant therapy.
- Had 'full body scan' last year that showed no evidence of disease.
DVT Prophylaxis: On Eliquis
Code Status: Full
Anticipated Discharge: Today
Subjective/Interval History
-
Date of Service: June 29, 2024
seen an dexamined
no enw complaints
no acute overnight events
feeling better
o2 off
no sob/dizziness while walking
Objective Data
-
Labs:
Laboratory Results
06/29/24
06:22
WBC 8.1
Hgb 15.4
Hct 45.9
Plt Count 183
Sodium 140
Potassium 4.0
Chloride 99
Carbon Dioxide 34 H
BUN 24 H
Creatinine 0.9
Glucose 97
Calcium 9.1
Vital Signs:
Vital Signs
Temp Pulse Resp BP Pulse Ox
97.9 F 85 18 119/68 93
06/29/24 07:00 06/29/24 09:00 06/29/24 08:00 06/29/24 09:00 06/29/24 08:00
I&O
06/28/24 06/29/24 06/30/24
06:59 06:59 06:59
Intake Total 480 / 480 960 / 960
Balance 480 / 480 960 / 960
Physical Exam
-
General: Well Developed and Well Nourished
HEENT: Normocephalic and Atraumatic
Respiratory: Rhonchi
Cardiac: Regular Rhythm and S1/S2
GI: Soft, Nontender, Nondistended and Normal Bowel Sounds
Skin: Warm
Psych: Calm
--- NOTE | 2024-06-29 12:26 | W.DCSUMMARY ---
Discharge Summary
Discharge Data
Date of Admission: 06/25/24
Date of Discharge: 06/29/24
-
Pending Results: No
Discharge Plan
-
Patient Disposition: Home (Routine Discharge)
Discharge Diagnosis/Procedures: Acute respiratory failure with hypoxia
Flu A +
Diet: As tolerated
Activity: As tolerated
Activity Restrictions/Additional Instructions:
84y F with PMH significant for A-Fib, HFpEF and lung cancer s/p excision
Presented with shortness of breath and cough. Was noted to have low oxygen saturations started on supplemental oxygen. Was found to be flu a positive in that did demonstrate cardiomegaly with bibasilar atelectasis. Started on Tamiflu and Lasix
was changed from 40 mg every 48 hours to 40 mg daily. Able to wean supplemental oxygen off to room air. Will need to complete Tamiflu course.
Referrals:
Anthony Palencia MD [Family Provider] -
Prescriptions:
New
furosemide 40 mg Tablet
40 mg PO DAILY Qty: 30 0RF
benzonatate 100 mg Capsule
100 mg PO TIDPRN PRN (Reason: Cough) Qty: 9 0RF
oseltamivir 30 mg Capsule
30 mg PO BID 2 Days Qty: 4 0RF
Continued
Eliquis 5 MG tablet
5 mg PO BID Qty: 60 3RF
Rx Instructions:
Use 30 day free card with 1st prescription
diltiazem HCl 240 mg Capsule,Extended Release 24hr
240 mg PO DAILY
rosuvastatin 10 mg Tablet
10 mg PO Q48H
guaifenesin [Mucinex] 600 mg Tablet Extended Release 12hr
600 mg PO [id number] PRN (Reason: cough)
metoprolol succinate [Toprol XL] 50 MG tablet extended release 24 hr
75 mg PO BID
Discontinued
furosemide 40 mg Tablet
40 mg PO Q48H
nitrofurantoin monohyd/m-cryst [Macrobid] 100 mg Capsule
100 mg PO BID
Discharge Orders:
Discharge Patient (As Directed); Ordered 06/29/24
Ordered By: Jas Tavera
Discharge Date and Time
Print Language: FRISIAN
--- NOTE | 2024-06-29 12:38 | PTCARENOTE ---
pt is being discharged today, daughter at bedside to provide transportation at home.
--- NOTE | 2024-06-29 12:41 | CM ---
Patient spoke with CM via phone. Patient daughter here and willing to transport patient home. Patient declined VN and confirmed that the pharmacy listed in chart is the correct one. CM will continue to follow for discharge planning needs.
Plan; home with daughter.
== END 2024-06-29 13:40 | disposition home or self-care (01) | DRG 193 ==
LOC: 2 NORTH 00:43
PROVIDERS: Student in an Organized Health Care Education/Training Program; ADMITTING PHYSICIAN Hospitalist; ATTENDING PHYSICIAN Hospitalist; EMERGENCY PHYSICIAN Emergency Medicine; FAMILY PHYSICIAN Internal Medicine
DX: J10.1 Influenza due to other identified influenza virus with other respiratory manifestations (principal); I50.33 Acute on chronic diastolic (congestive) heart failure; J96.01 Acute respiratory failure with hypoxia; I48.19 Other persistent atrial fibrillation; N39.0 Urinary tract infection, site not specified; E87.6 Hypokalemia; Z85.118 Personal history of other malignant neoplasm of bronchus and lung; Z79.899 Other long term (current) drug therapy; Z96.641 Presence of right artificial hip joint; Z88.2 Allergy status to sulfonamides; Z79.01 Long term (current) use of anticoagulants; Z20.822 Contact with and (suspected) exposure to COVID-19
CPT/HCPCS: 71046; 80048; 80053; 80061; 83735; 83880; 84132; 84145; 84484; 85025; 85027; 87502; 87811; 93005; 94640; 94761; 96374; 96375; 99291

== ENCOUNTER 2025-07-07 00:05 | Emergency (ER) | payer MEDICARE, SELFPAY ==
[2025-07-07 00:14] VITALS: BP 148/87
[2025-07-07 00:51] LABS: Hematocrit 45.8 % (37.0-47.0); Hemoglobin 15.1 g/dL (12.0-16.0); Mean Corp Hgb Conc. 33.0 g/dL (33.0-37.0); Mean Corpuscular Volume 93.1 fL (81.0-99.0); Nucleated Red Blood Cells % 0 %; Platelet Count 203 10^3/uL (130-400); Red Cell Dist. Width 13.4 % (11.5-14.5)
[2025-07-07 01:18] LABS: Troponin I < 0.012 ng/ml
[2025-07-07 01:30] LABS: ALT (SGPT) 20 U/L (0-35); AST (SGOT) 26 U/L (14-36); Albumin 4.5 g/dl (3.5-5.0); Alkaline Phosphatase 95 U/L (38-126); Blood Urea Nitrogen 25 mg/dl (7-17); Calcium 9.8 mg/dl (8.4-10.2); Carbon Dioxide 26 mmol/L (22-30); Chloride 104 mmol/L (98-107); Glucose 99 mg/dl (70-99); Potassium 4.4 mmol/L (3.5-5.1); Sodium 140 mmol/L (135-145); Total Protein 7.4 g/dl (6.3-8.2); eGFR 54.53
[2025-07-07 02:29] VITALS: BP 137/80
[2025-07-07 02:32] VITALS: BMI 27.9
[2025-07-07 03:00] VITALS: BP 128/76
--- NOTE | 2025-07-07 04:58 | ED.GENMED ---
History of Present Illness
General
Chief Complaint: Chest Pain
Source: patient
Exam Limitations: none
Time Seen by Provider: 07/07/25 03:47
Nursing documentation reviewed up to this point in time: agreed with
History of Present Illness
History of Present Illness:
85-year-old female past medical history of A-fib currently on Eliquis and metoprolol presenting to the emergency department today with concerns of left-sided chest discomfort had 2 aspirin prior to arrival. Denies any shortness of breath nausea
vomiting or diaphoresis associated.
Past History
Past History
ED Past Medical History: Arrthythmia, Cancer, CHF and Other (lung ca)
ED Past Surgical History: Orthopedic and Other (lung resection)
Social History
Tobacco: Non-smoker
Alcohol: Occasional
Drug: None
Personal:
Living: with family
Review of Systems
Review of Systems
Allergies reviewed?: Yes
All Other Systems: ROS reviewed and negative except as documented in HPI and ROS
Phy Exam
Physical Exam
Physical Exam:
GENERAL: Alert , in no apparent distress
EYE: pupils equal and reactive
NECK: Supple, no significant adenopathy.
ENT: o/p clr, mmm.
CARDIAC: Regular rate and rhythm .
LUNGS: Clear breath sounds bilaterally, no acute respiratory distress, no wheezes/rales/rhonchi
ABDOMEN: Soft, without focal tenderness, no r/g, no cvat
NEUROLOGICAL: Alert and oriented, no focal neuro deficits
SKIN: Warm and dry, skin intact.
MUSCULOSKELETAL: No edema, well perfused.
PSYCH: Normal and appropriate interaction.
Scores
Heart Score for Chest Pain Patients
STEMI patient?: No
History: Slightly or Non-Suspicious
ECG: Nonspecific Repolarization
Age: >/= 65 years
Risk Factors: >/= 3 Risk Factors or History of CAD
Troponin: </= Normal Limit
Heart Score for Chest Pain Patients: 5
Heart Score Risk: 20.3% MACE over next 6 weeks
Course
Orders/Labs/Results
Orders:
Orders
07/07/25 00:19
EKG [Electrocardiogram (*1)] Urgent
Reason for Study: Chest Pain
EKG- Treatment ONCE
07/07/25 00:45
Complete Blood Count/With Diff Urgent
Comprehensive Metabolic Panel Urgent
Troponin I Urgent
07/07/25 04:27
Electrocardiogram (*1) Urgent
Reason for Study: Chest Pain
EKG- Treatment ONCE
Mag Hydrox/Al Hydrox/Simeth [Maalox] 30 ml Phenobarb/Hyoscy/Atropine/Scop [] 10 ml PO NOW
Chest [CR Chest - 2 Views ] Urgent
Comment:
Reason For Exam: left cp
07/07/25 05:04
Troponin I Urgent
07/07/25 05:27
Mag Hydrox/Al Hydrox/Simeth [Maalox] 30 ml .ROUTE .STK-MED ONE
Phenobarb/Hyoscy/Atropine/Scop [] 10 ml .ROUTE .STK-MED ONE
Abnormal Lab Results
07/07/25
00:45
MPV 11.2 H fL
(7.4-10.4)
Absolute Monos (auto) 1.1 H 10^3/uL
(0.1-0.6)
Monocytes % 11.2 H %
(1.7-9.3)
BUN 25 H mg/dl
(7-17)
07/07/25 00:45
07/07/25 00:45
Vital Signs
Initial and Last Documented VS:
Initial Vital Signs
Temp Pulse Resp BP Pulse Ox
98.0 F 137 18 148/87 98
07/07/25 00:14 07/07/25 00:14 07/07/25 00:14 07/07/25 00:14 07/07/25 00:14
Last Documented Vital Signs
Temp Pulse Resp BP Pulse Ox
98.0 F 95 22 128/76 98
07/07/25 00:14 07/07/25 03:00 07/07/25 03:00 07/07/25 03:00 07/07/25 04:59
MDM/Problems Addressed
MDM/Problems Addressed:
85-year-old female presenting to the emergency department with concerns of left-sided chest pain prior to arrival for a few hours. On arrival symptoms improved. Did take 2 aspirin prior to arrival. Initially was tachycardic but improved without
specific treatment. Labs unremarkable troponin negative. EKG without signs of ischemia. Repeat EKG without change, second troponin negative. Patient no distress throughout ER stay symptoms improved. Patient advised for close cardiology
follow-up. Return precautions given. Of note the patient initially had an x-ray ordered. There was delay in getting the x-ray in the ER. She claimed that she was leave at this point it was okay not getting the x-ray and understand that there are
a few diagnoses that can be missed without getting the x-ray. She understood the risk and will follow-up closely as an outpatient.
*Pulse Oximetry
SaO2: 98
Oxygen Mode of Delivery: Room air
Patient hypoxic: no (98)
*Critical Care Note
Total Time (30-74mins, 75-104mins- exclusive of procedures): Not Applicable
ED Attending Note
-
Portions of this chart may have been created with voice recognition software.� Occasional wrong word or��sound alike� substitutions may have occurred due to the inherent limitations of voice recognition software.
Discharge Plan
Departure
Patient Disposition: Home (Routine Discharge)
Date of Disposition: 07/07/25
Time of Disposition: 05:50
Patient with high blood pressure during this ER visit?: No
Condition: Good
Covid-19: Not Applicable
Discharge Problem:
Chest pain
Instructions: Chest Pain CBC Follow Up
Prescriptions:
No Action
Eliquis 5 MG tablet
5 mg PO BID Qty: 60 3RF
Rx Instructions:
Use 30 day free card with 1st prescription
diltiazem HCl 240 mg Capsule,Extended Release 24hr
240 mg PO DAILY
rosuvastatin 10 mg Tablet
10 mg PO Q48H
guaifenesin [Mucinex] 600 mg Tablet Extended Release 12hr
600 mg PO [id number] PRN (Reason: cough)
metoprolol succinate [Toprol XL] 50 MG tablet extended release 24 hr
75 mg PO BID
furosemide 40 mg Tablet
40 mg PO DAILY Qty: 30 0RF
benzonatate 100 mg Capsule
100 mg PO TIDPRN PRN (Reason: Cough) Qty: 9 0RF
oseltamivir 30 mg Capsule
30 mg PO BID 2 Days Qty: 4 0RF
Referrals:
Anthony Palencia MD [Family Provider, Internal Medicine]
Activity Restrictions/Additional Instructions:
You came to the emergency department today with concerns of chest discomfort. Here had a reassuring assessment. Please have close with cardiology. Return for any worsening, new or concerning symptoms.
Interventions
Interventions:
*General Assessment Last Done: 07/07/25 02:33
*Neglect/Abuse Screening Last Done: 07/07/25 02:33
*ED COVID-19 Vaccine History Last Done: 07/07/25 02:33
*ED Influenza Vaccine History Last Done: 07/07/25 02:33
[facility] Fall Risk Assessment Tool Last Done: 07/07/25 02:28
*Risk Screen - Suicide (C-SSRS) Last Done: 07/07/25 00:14
ED- Cardiac Assessment Last Done: 07/07/25 02:33
Discharge Date and Time
Print Language: SLOVENIAN
[2025-07-07] MEDS: MAALOX 30 PO (05:29)
[2025-07-07 05:38] LABS: Troponin I < 0.012 ng/ml
== END 2025-07-07 06:17 | disposition home or self-care (01) ==
LOC: EMR 00:05
PROVIDERS: Physician Assistant; EMERGENCY PHYSICIAN Emergency Medicine; FAMILY PHYSICIAN Internal Medicine
DX: R07.89 Other chest pain (principal); I48.91 Unspecified atrial fibrillation; I50.9 Heart failure, unspecified; M19.90 Unspecified osteoarthritis, unspecified site; Z79.01 Long term (current) use of anticoagulants; Z85.118 Personal history of other malignant neoplasm of bronchus and lung; Z85.828 Personal history of other malignant neoplasm of skin; Z90.2 Acquired absence of lung [part of]; Z88.2 Allergy status to sulfonamides
CPT/HCPCS: 99284; 80053; 84484; 85025; 93005